=== PATIENT | female | born 1965 | race Caucasian/White ===

== ENCOUNTER 2022-07-24 08:54 | Outpatient (CLI) | payer BC, SELFPAY ==
--- NOTE | 2022-07-24 08:30 | DI.RAD_ITS ---
Exam(s) XR KNEE RT 3V AP,LAT,KEAGAN EXAM: XR KNEE RT 3V AP,LAT,KEAGAN CLINICAL HISTORY: bilateral knee pain. TECHNIQUE: 2D digital imaging was performed. COMPARISON: No exams were available for comparison FINDINGS: 3 views No evidence of fracture but there is a joint effusion evident. There is advanced narrowing of the me dial compartment. Mild lateral compartment exhibits normal height. There also appears to be mild de generative change in patellofemoral compartment. There is also a notch on the posterior aspect of th e patella, similar to the opposite side. IMPRESSION: Degenerative changes, as described above. DATA REPOSITORY: RADIATION DOSE DELIVERED:
--- NOTE | 2022-07-24 08:30 | DI.RAD_ITS ---
Exam(s) XR KNEE LT 3V AP,LAT,KEAGAN EXAM: XR KNEE LT 3V AP,LAT,KEAGAN CLINICAL HISTORY: bilateral knee pain. TECHNIQUE: 2D digital imaging was performed. COMPARISON: CR XR KNEE RT 3V AP,LAT,KEAGAN from 07/24/2022 FINDINGS: 3 views No evidence of fracture. There appears to be a small joint effusion. There is significant narrowing of the medial compartment. Lateral compartment exhibits normal height. There is some degenerative change in the patellofemoral compartment and abnormality of the posterior surface of the patella whic h is difficult to evaluate without merchant's view. Possible osteochondral defect versus development al notch at this level. IMPRESSION: As above. Recommend additional merchant's view. DATA REPOSITORY: RADIATION DOSE DELIVERED:
== END 2022-07-24 08:55 | disposition home or self-care (01) ==
LOC: DIORS 08:55
PROVIDERS: PCP Family Medicine; Referring Provider Family Medicine; Visit Provider Student in an Organized Health Care Education/Training Program
DX: M25.561 Pain in right knee (principal); M25.562 Pain in left knee; M25.461 Effusion, right knee; M25.462 Effusion, left knee; M17.0 Bilateral primary osteoarthritis of knee
CPT/HCPCS: 73562

== ENCOUNTER 2022-10-08 08:37 | Outpatient (CLI) | payer BC, SELFPAY ==
--- NOTE | 2022-10-08 08:00 | DI.RAD_ITS ---
Exam(s) XR STANDING ALIGNMENT EXAM: XR STANDING ALIGNMENT CLINICAL HISTORY: f/u. TECHNIQUE: 2D digital imaging was performed. Standing AP views were performed from the pelvis throu gh the ankles. COMPARISON: CR XR KNEE LT 3V AP,LAT,KEAGAN from 07/24/2022 CR XR KNEE RT 3V AP,LAT,KEAGAN from 07/24/2022 FINDINGS: BONES: No acute fracture is present. No bony destructive lesion is seen. Leg length discrepancy: The left femoral head projects slightly superior to the right. JOINTS: Knees: Right knee: Severe narrowing of the medial femoral tibial joint space. Mild periartic ular spurring. Left knee moderate to severe narrowing of the medial femoral tibial joint space and m ild periarticular spurring. The ankle joints are unremarkable. The hip joints spaces are maintained. Mild acetabular spurring on the right.. SOFT TISSUE: Normal. IMPRESSION: Advanced degenerative changes of both knees, right greater than left. . Mild overall leg length discrepancy. DATA REPOSITORY: RADIATION DOSE DELIVERED:
== END 2022-10-08 08:38 | disposition home or self-care (01) ==
LOC: DIORS 08:37
PROVIDERS: PCP Nurse Practitioner Family; Referring Provider Nurse Practitioner Family; Visit Provider Student in an Organized Health Care Education/Training Program
DX: M21.70 Unequal limb length (acquired), unspecified site; M25.562 Pain in left knee; M17.0 Bilateral primary osteoarthritis of knee
CPT/HCPCS: 77073

== ENCOUNTER 2022-10-30 05:55 | Day surgery (SDC) | payer BC, SELFPAY ==
[2022-10-30] VITALS (14 sets, daily range): BP systolic 81–119; BP diastolic 44–77; PULSE 80–107; RESP 11–23; TEMP 36.5–37.2; O2SAT 92–98; BMI 29.1
--- NOTE | 2022-10-30 05:13 | ANES.PREOP_ITS ---
General Info Date of Service Date Performed: 10/30/22 Height: 5 ft 5 in Weight: 79.379 kg Body Mass Index (BMI): 29.1 Surgical Procedure: Operation Date: 10/30/22 08:00 Proposed Procedure Side Surgeon p Medial Unicondylar Knee Arthroplasty Left Gilbert Dsouza MD Meds Allergies and Home Medications Allergies Allergy/AdvReac Type Severity Reaction Status Date / Time No Known Allergies Allergy Verified 10/30/22 06:03 Home Medication Medication Instructions Recorded levothyroxine 88 mcg capsule 88 mcg PO DAILY 07/24/22 multivitamin 1 tab PO DAILY 10/27/22 Current Visit Medications: Current Medications Generic Name Dose Route Start Last Admin Trade Name Freq PRN Reason Stop Dose Admin Acetaminophen 1,000 mg 10/30/22 06:00 Acetaminophen 500 Mg Tab PO 10/30/22 16:00 PREOP YARI Celecoxib 400 mg 10/30/22 06:00 Celecoxib 200 Mg Cap PO 10/30/22 16:00 PREOP YARI Gabapentin 300 mg 10/30/22 06:00 Gabapentin 300 Mg Cap PO 10/30/22 16:00 PREOP [facility] Ringer's Solution 1,000 mls @ 30 mls/hr 10/30/22 06:00 IV 11/28/22 23:59 INFUSION YARI Cefazolin Sodium/Dextrose 2 gm in 50 mls @ 100 mls/hr 10/30/22 06:00 Ancef Duplex IVPB 10/30/22 16:00 PREOP [facility] Tranexamic Acid 1,000 mg/ 60 mls @ 360 mls/hr 10/30/22 06:00 Sodium Chloride IVPB 10/30/22 16:00 PREOP [facility] IV Miscellaneous Supplies 1 each 10/30/22 06:00 Iv Access IV 11/28/22 23:59 DIRECTED YARI Sodium Chloride 0 ml 10/30/22 06:00 Normal Saline Flush 10 Ml Syr IV 11/28/22 23:59 PRN PRN Sodium Chloride 0 ml 10/30/22 06:00 Normal Saline 10 Ml Vial IJ 11/28/22 23:59 DIRECTED PRN Sterile Water 0 ml 10/30/22 06:00 Water,Injection,Sterile 10 Ml Vial IJ 11/28/22 23:59 DIRECTED PRN PFSH Active Problems Active Problems: Problem Status Onset Code Primary osteoarthritis of left knee M17.12 Primary osteoarthritis of right knee M17.11 Medical History Medical History Hypothyroidism Surgical History Surgical History Hx of hysterectomy Tobacco Smoking/Tobacco Use Status: Never Alcohol Alcohol Intake: current Alcohol intake frequency: a few times a week Alcohol type: wine Substance Use Substance use: Never Substance use type: does not use Vital Signs and Lab Results Vital Signs Most Recent Vital Signs in EMR: Temp Pulse Resp BP Pulse Ox 36.6 C 85 16 119/74 98 10/30/22 06:03 10/30/22 06:03 10/30/22 06:03 10/30/22 06:03 10/30/22 06:03 Lab Results Blood Type / Crossmatch: No Data to Display Complete Blood Count: No Data to Display Complete Metabolic Panel: No Data to Display Liver Function Panel: No Data to Display Coagulation Panel: No Data to Display Cardiac Panel: No Data to Display Arterial Blood Gas: No Data to Display Venous Blood Gas: No Data to Display Pancreas Panel: No Data to Display Thyroid Panel: No Data to Display Infectious Disease: No Data to Display Blood Cultures: No Data to Display Toxicology Panel: No Data to Display Anesthesia Assessment and Plan Anesthesia History Personal History: No History of Anesthesia Complications Family History: No Family History of Anesthesia Complications Exercise Tolerance Exercise Tolerance: Metabolic Equivalents>4 Cardiac & Pulmonary Exam Cardiac Exam: Normal S1/S2 Heart Sounds Pulmonary Exam: Clear Bilateral Breath Sounds Implantable Cardiac Device Does patient have a Pacemaker or an ICD?: No Airway Exam Known Difficult Airway: No Mallampati Class: 3 Mouth Opening: Narrow (< 3cm) Thyromental Distance: Less than 3 cm Neck Range of Motion: Full ROM Neck Circumference: Normal Teeth Condition: Normal Dentition ASA Classification ASA Score: ASA 2 Emergency Case?: No NPO Status NPO Status: NPO Clears >2 hours, Solids >8 hours Anesthesia Plan Resuscitation Status: Full Code Anesthesia Technique: Spinal Anesthesia Airway Planned: Natural Airway Pain Management: Surgeon and patient request nerve block Monitors Used: Standard Monitors Preoperative Comments:: 57 yo female with medial knee arthritis for left medial unicondylar arthroplasty. Sig PMHx: hypothyroid (on replacement), never smoker, occ EtOH. Plan: spinal with ipack and adductor.
[2022-10-30] MEDS: Acetaminophen 500 MG TAB 1000 MG PO (06:30)
[2022-10-30] MEDS: Celecoxib 200 MG CAP 400 MG PO (06:30)
[2022-10-30] MEDS: Gabapentin 300 MG CAP PO (06:31)
[2022-10-30] MEDS: Lactated Ringers 1,000 ML 30 ML IV ×2 (06:31→11:47)
--- NOTE | 2022-10-30 07:00 | DI.RAD_ITS ---
Exam(s) XR KNEE LT 2V AP,LAT EXAM: XR KNEE LT 2V AP,LAT CLINICAL HISTORY: Left knee arthritis. TECHNIQUE: 2D digital imaging was performed of the left knee. Two images were obtained. Merchant,A P, lateral and PA tunnel views were obtained. COMPARISON: CR XR KNEE LT 3V AP,LAT,KEAGAN from 07/24/2022 CR XR STANDING ALIGNMENT from 10/08/2022 FINDINGS: The patient is now status post partial left knee replacement. The orthopedic hardware appears in goo d position. The bones are intact and normally mineralized. There are mild degenerative changes seen at the patellofemoral joint characterized by patellar spurring. Postsurgical changes are seen in th e soft tissues. IMPRESSION: Status post partial left knee replacement. DATA REPOSITORY: RADIATION DOSE DELIVERED:
--- NOTE | 2022-10-30 07:12 | W.PM.DSUDISC ---
Date of service: 10/30/22 Time of Service: 13:30 Discharge Plan Disposition Patient Disposition: Home Discharge Details Attending Provider: Gilbert Dsouza Primary Care Provider: Inocencio Titus Home Meds and New Rx's Prescriptions: New aspirin 81 mg tablet,delayed release (DR/EC) 81 mg PO BID 30 Days Qty: 60 0RF naproxen 250 mg tablet 250 - 500 mg PO BID PRNQty: 40 0RF Rx Instructions: take with a meal oxycodone 5 mg tablet 5 - 10 mg PO Q4H MDD 30 mg PRN (Reason: moderate to severe pain) Qty: 18 0RF Continued levothyroxine 88 mcg capsule 88 mcg PO DAILY multivitamin Tablet 1 tab PO DAILY Discharge Instructions Additional Instructions: Surgery: Left medial unicondylar knee replacement Activity: Weightbearing as tolerated. Recommend elevation to minimize swelling and discomfort. Walk as comfort allows. May use crutches as needed for a few weeks. It is important to restore full knee extension as soon as possible. Gently increase knee flexion over the next few weeks. Do not rest with pillows behind knee to prevent knee from getting stuck bent. Encourage ankle pumps and wiggling toes to increase circulation. A physical therapy prescription will be sent electronically to begin in 2-3 weeks. Prescriptions: Aspirin 81 mg take 1 twice a day to prevent a blood clot 30 days Naproxen 250 mg take 1-2 every 12 hours with a meal as needed for moderate pain Oxycodone 5 mg take 1-2 every 4-6 hours as needed for severe pain You may use [id number] Tylenol (acetaminophen) as needed for mild pain. These pain medications may be taken all at once or in different combinations as needed. Also, recommend Colace (docusate) as a stool softener as surgery and pain medicine cause constipation. You may try [id number] diphenhydramine (Benadryl) 25-50 mg nightly as a sleep aid Dressings: Leave Band-Aid in place until follow-up. Keep clean and dry at all times. May remove Alec wrap tomorrow. May re-wrap with Alec wrap to help control swelling as needed. Follow-up: 10-[address] Dsouza November 11 at 8:00 am You may take off the leg compression Alec wrap and stockings tomorrow at home. You may also leave them on a few days longer if you have a history of leg swelling or edema. Let us know right away if you develop any redness, drainage, fevers, chest pain, or trouble breathing. Do not drink alcohol or drive for at least 24 hours after anesthesia. Please call the office during business hours with any questions or concerns. Discharge Orders Discharge Orders: Discharge Order (Routine); Ordered 10/30/22 Ordered By: Gilbert Dsouza DS: Diagnosis Discharge Diagnosis (1) Primary osteoarthritis of left knee: Status: Acute
--- NOTE | 2022-10-30 07:14 | ROE_ITS ---
Date of service: 10/30/22 Time of Service: 07:30 Operative Note Operative Note DATE OF PROCEDURE: 10/30/22 PRE-OP DIAGNOSIS: Left knee medial compartmental arthritis POST-OP DIAGNOSIS: same PROCEDURE: Left knee medial unicompartmental arthroplasty, CPT # 66939 The carpenter assistant installer was medically required as this procedure involves retraction, protection of neurovascular structures, and manipulation of multiple instruments and implants at the same time, which cannot be done without a skilled carpenter assistant installer. SURGEON: Gilbert Dsouza ACTIVITIES DIRECTOR: Sharon Rodney ANESTHESIA TYPE: Local By Surgeon, MAC, Spinal and Primary Nerve Block Refer to Anesthesia Record ESTIMATED BLOOD LOSS: 50 PATHOLOGY: none sent TOURNIQUET TIME: 0 COMPLICATIONS: None Patient was transported to: PACU Patient's condition: stable Implants: DePuy Sigma HP partial knee size 1 metal-backed tibial tray, 9 mm tibial insert fixed bearing, size 3 femoral component Indications: Please see complete medical record for details. Findings: Isolated medial compartment arthritis Procedure Description: The patient was taken to the operating room and transferred to the operating room table. Spinal anesthesia was induced. All bony prominences were well- padded. Preoperative antibiotics and 1 g TXA were administered. A tourniquet was placed loosely over padding high on the patient's thigh. The knee and lower extremity were prepped and draped in the usual sterile fashion. The correct patient, procedure, and side of the procedure were all verified prior to incision. A slightly medial of midline longitudinal approach was used to the knee extending from the superior pole the patella to the distal aspect of the tibial tubercle. The quadriceps tendon, patella borders, and patellar tendon were exposed. A full-thickness arthrotomy was performed starting splitting the quadriceps tendon and leaving a sleeve of tissue on the medial aspect of the patella and taking care to progress along the medial margin the patellar tendon. The MCL was elevated off the proximal medial tibia. The tibial alignment jig was set in place on the anterior medial aspect of the tibia and carefully adjusted to achieve proper alignment in the coronal and sagittal planes. Reciprocating saw was used to create the vertical cut at the medial aspect of the medial tibial eminence taking care to protect the ACL ligament footprint. The transverse cut was then done using the microsagittal saw through the jig taking care to retract and protect the MCL. The bone piece and cut were inspected and found to be appropriate for patient anatomy. A box rasp was used to clean up the cut especially the L component. The 8mm spacer block was inserted and found to have good equal stability in full extension and 90 degrees of flexion with approximately 2 mm of joint space opening in 20-30 degrees of flexion. With the knee in extension, the tibial trial spacer block was used to vicente the rotational alignment and anterior extent of the femoral component. The spacer block was removed and the tibia was sized with the depth gauge. The distal femoral cutting block was inserted taking care to orient it ap propriately. The cut was done using the saw through the guide. The guide was removed, and the femur was sized with the femoral sizing blocks. The appropriate sized cutting jig was selected. Care was taken to ensure the block was flush with the resected distal femur bone surface. A curved gouge was used to cut the profile of the proximal tip of the femoral prosthesis, vicente the extent of the anterior chamfer cut, and prevent trochlear cartilage delamination. The posterior cut was done through the jig, the anterior cut was done using the osteotomes, the posterior chamfer cut was done through the jig, and the drill was used to drill the 2 peg holes. The cutting block and bone cuts were removed. The medial meniscus remnant was removed. The femoral component trial was placed in the distal femur and the 8mm spacer block showed reasonably good balancing in flexion, extension, and with about 2 mm of medial joint space opening in 20-30 degrees of flexion. Tibial template was inserted and the size confirmed to be appropriate. The keel was used by hand to remove bone from the slot and the tibial peg drill was used in the peg hole. The pulse lavage was used to clean the bone surfaces. SmartSet medium viscosity cement was prepared. At the appropriate time during the early working phase, the cement was applied to the backside of the tibial and femoral components. Then, cement was carefully placed and pressurized into the proximal tibia taking care to only have minimal cement posteriorly. The tibial component was inserted at an angle and then impacted directing pressure from posterior to anterior to keep the flow of cement from posterior to anterior. Cement was then applied to the distal femur and the femoral component impacted. Excess cement was removed. The knee was brought into full extension and this position with axial load was maintained until the cement was completely hardened at 18 minutes. A combination R.E.C.K. (123 mg Ropivacaine, 0.25 mg Epinephrine, 0.04 mg Clonidine, and 15 mg Ketorolac) 50 ml injection was widely infiltrated about the knee. The wound was copiously irrigated with the pulse lavage and Surgiphor. Tibial tray blast furnace supervisor was removed, the tibia 8 mm trial was used again with just slightly more laxity than ideal, the 9 mm trial had excellent balancing in flexion, extension, and still about 1-2 mm of medial joint opening and mild f lexion. The final 9mm tibial insert was inserted and clicked into place. The knee was tested through range of motion found to be stable with equal balancing from full extension to flexion past 90 degrees and a couple millimeters of medial joint space opening in 20-30 degrees of flexion. Appropriate hemostasis was achieved. The capsule was approximated using #1 Vicryl in a figure-of-8 interrupted fashion and then closed using Stratafix #1 PDS barbed suture in a running fashion. The superficial layers were irrigated. Subcutaneous tissue was closed using 2-0 Monocryl in a buried interrupted fashion. Skin was closed using 3-0 Monocryl in a buried subcuticular fashion. The skin incision was glued and then covered with a Mepilex Ag dressing. An Alec wrap was applied from the foot up to the thigh. The patient awoke from anesthesia without complication was transferred to the recovery room in stable condition.
--- NOTE | 2022-10-30 07:22 | W.ANESNERVE ---
Nerve Block Single Injection Procedure Date and Time Date Performed: 10/30/22 Procedure Start: 07:12 Location Where Procedure Performed Procedure Location: Day Surgery Unit Reason Performed: Postoperative Analgesia Requesting Provider: Gilbert Dsouza Timeout Performed Timeout Performed: Yes Monitoring Used ECG, Blood Pressure and SpO2 Sterility Sterility: Hand Hygiene Sedation Given During Procedure Sedation Given (Indicate Dose Given): Versed IV Dose:: 2 mg and Precedex IV Dose:: 8 mcg Patient Mental Status Patient Mental Status: Awake Nerve Block 1st Nerve Block: Laterality: Left Block Type: iPACK Ultrasound Image Saved?: Yes Needle / Catheter Used: 100mm SonoPlex II Local Anesthetic Bolus (Indicate Dose Given): Lidocaine used for local infiltration of skin, Injected in 3-5ml increments after negative blood aspiration and Bupivacaine 0.25% Dose:: 12 mL Additives (Indicate Dose Given): Epinephrine to make 1:400,000 (2.5mcg/ml) Dose:: 30 mcg and Precedex Dose:: 19 mcg Ultrasound: Sterile probe cover and gel used Nerve Stimulator: Supplement to Ultrasound use and No twitch or parasthesia noted < 0.5 mA Paresthesia: None Procedure Tolerated: No Complications Procedure Outcome: Successful Performed By: Jose Almonte 2nd Nerve Block: Laterality: Left Block Type: Adductor Canal Ultrasound Image Saved?: Yes Needle / Catheter Used: 100mm SonoPlex II Local Anesthetic Bolus (Indicate Dose Given): Lidocaine used for local infiltration of skin and Bupivacaine 0.25% Dose:: 12 mL Additives (Indicate Dose Given): Epinephrine to make 1:400,000 (2.5mcg/ml) Dose:: 30 mcg and Precedex Dose:: 19 mcg Ultrasound: Sterile probe cover and gel used Nerve Stimulator: Supplement to Ultrasound use and Other (twitch noted in vastus, needle repositioned until stopped, local injected, needle finished advancing towards the saphenous nerve. ) Paresthesia: None Procedure Tolerated: No Complications Procedure Outcome: Successful Procedure Comment: 6 mL to NVM, 6 mL to saphenous. Performed By: Jose Almonte
[2022-10-30] MEDS: ceFAZolin 2 GM/50 ML BAG IVPB (07:39)
[2022-10-30] MEDS: ePHEDrine 50 MG/ML VIAL 25 MG IM (11:40)
--- NOTE | 2022-10-30 11:56 | W.ANESPOSTOP ---
Postoperative Evaluation Date, Time and Location Date Performed: 10/30/22 Time Performed: 11:56 Patient Location: PACU Vital Signs Most Recent Imported Vital Signs: Most Recent Vital Signs Temp Pulse Resp BP Pulse Ox 36.7 C 85 11 L 84/44 L 98 10/30/22 11:43 10/30/22 11:43 10/30/22 11:43 10/30/22 11:43 10/30/22 11:43 Pain Score Most Recent Pain Score: Most Recent Pain Score Pain Level 0 10/30/22 07:20 Assessment Mental Status: Awake (Alert & Oriented to Patient Baseline) Airway and Respiratory Function: Patent airway with normal (patient baseline) respiratory exam Cardiovascular Function: Hemodynamically Stable Hydration Status: Adequately Hydrated Nausea & Vomiting: No Nausea or Vomiting Pain: Pt. Denies Any Pain Peripheral Nerve Block: Regional nerve block not resolved at time of post operative discharge
[2022-10-30] MEDS: ceFAZolin 1 GM/50 ML BAG IVPB (12:55)
--- NOTE | 2022-10-30 14:38 | IN_ITS ---
Date of service: 10/30/22 Time of Service: 13:18 PT Notes Physical Therapy Day Surgery Initial Evaluation Date: 10/30/2022 Referring Doctor: Gilbert Dsouza MD PT Orders: PT CONSULT: S/P Ortho Surgery. S/P Lt UKA, WBAT; crutches until stable Precautions: WBAT on the L LE with AD. Patient Profile/Admitting Diagnosis: Britta is a 57-year-old female left medial compartment arthritis and is status post left medial knee unicompartmental arthroplasty on postoperative day 0. PMHX: All Active Problems?(Updated 07/24/22 @ 09:00 by JUAN Portillo) Primary osteoarthritis of right knee (Acute) Steroid injection: 07/24/2022rimary osteoarthritis of left knee (Acute) Steroid injection: 07/24/2022 Social History/Home Situation: Lives with in a private home with 2-3 steps to enter with rails on B sides. has a flight of steps to the 2F where bedroom is. Independent with all aspects of ADLs prior to surgery although patient had been limping through for the past year or two. No falls in the past year. Works as a [employer] teacher. Equipment Owned/DME: Walking sticks Subjective: Denies pain in the left knee. Denies headache, chest pain, and lightheadedness throughout session. Worried over incontinence episode from anesthesia effect. Objective: General Observation: Supine in bed. CULLEN wraps to left LE. Mental Status: Oriented x4 Pain: 1?2/10 pain in the left knee ROM: Right Lower Extremity: Hip flexion WFL. Hip abduction WFL. Knee flexion WFL. Ankle dorsiflexion WFL. Ankle plantarflexion WFL. Left Lower Extremity: Hip flexion WFL. Hip abduction WFL. Knee flexion 0-110 degrees. Knee extension 110-0 degrees. Ankle dorsiflexion WFL. Ankle p lantarflexion WFL. Strength: Right Lower Extremity: Hip flexors 5/5. Hip abductors 5/5. Knee flexors 5/5. Knee extensors 5/5. Ankle dorsiflexors 5/5. Ankle plantarflexors 5/5. Left Lower Extremity:Hip flexors 5/5. Hip abductors 5/5. Knee flexors 3-/5. Knee extensors 3-/5. Ankle dorsiflexors 5/5. Ankle plantarflexors 5/5. Sensation: Intact as to pain and light pressure in bilateral lower extremities. Remains numb in the perineal area. Bed Mobility/Transfers: Supine to sit stand by assist Sit to stand contact-guard assist Stand to sit stand by assist Bed to chair stand by assist Gait: Tolerated level surface ambulation of 150 feet using front-wheeled walker with step through gait pattern. Feels more secure with use of FWW knowing that her pain level may change once anesthesia wears off. Balance: Static Sitting: Normal Dynamic Sitting: Normal Static Standing: Fair Dynamic Standing: Fair Special Tests: Mobility Limitations Standardized Measure [facility] AM-PAC 6 clicks Basic Mobility Inpatient Short Form: Raw Score: 23 CMS Score: 11% deficit Informed Consent/Education: Patient instructed in purpose of PT consult. Packet containing partial TKA exercise protocol has been given to patient. Education and training on initial set of exercises that can be done at home have been completed with patient and . Exercises - Supine Quadricep Sets? - 1 x daily - 7 x weekly - 1 sets - 10 reps - 5 hold - Supine Heel Slide? - 1 x daily - 7 x weekly - 1 sets - 10 reps - 5 hold - Supine Ankle Pumps? - 1 x daily - 7 x weekly - 1 sets - 10 reps - 5 hold - Seated September? - 1 x daily - 7 x weekly - 1 sets - 10 reps - 5 hold - Small Range Straight Leg Raise? - 1 x daily - 7 x weekly - 1 sets - 10 reps - 5 hold Access Code: [email or web address] URL: [email or web address] Date: 10/30/2022 Prepared by: Val Oquendo Assessment: Patient requires the use of FWW to maximize independence and reduce fall risk. Patient presents with clinical signs and symptoms consistent with current/admitting diagnoses that have resulted to mobility limitations, gait instability, generalized weakness, and impairment of motor control as demonstrated by the following impairment level findings: 1. Decreased strength to left knee major muscle groups 2. Impaired standing balance 3. Limitation of joint range of motion in left knee Impairments are contributing to the following functional limitations: 1. Inability to safely ambulate without assistive device 2. Increase completion time for mobility ADL performance 3. Increased fall risk Patient is assessed as a 80149 moderate complexity based on the following: History: 57-year-old female with impairment level findings, functional limitations, and past medical history as indicated above Examination: Demonstrable impairment in strength, balance, and mobility level with underlying impairments and functional limitations as documented above Presentation: Evolving Decision Makin moderate complexity Goals: N/A. PT evaluation and 1-2 treatment sessions only for functional mobility training using recommended AD and for HEP instruction. Plan of Care/Treatment Plan: N/A. PT evaluation and 1-2 treatment session only for functional mobility training using recommended AD and for HEP instruction. DISCHARGE RECOMMENDATIONS: Home when medically cleared by orthopedic surgeon. Recommend outpatient PT services in order to optimize functional mobility outcomes and facilitate return to independent community ambulation and vocational activities. TREATMENT CODE/TIME: 88812 x 20 minutes, 49491 x 10 minutes beginning at 13:59 PM. Thank you for the opportunity to participate in the care of this patient. Val Oquendo PT, DPT, CLT [facility] [place], [place]
== END 2022-10-30 15:17 | disposition home or self-care (01) ==
PROVIDERS: PCP Nurse Practitioner Family; Visit Provider Student in an Organized Health Care Education/Training Program
PROC: (CPT 27446; principal; 2022-10-30 07:30)
DX: M17.12 Unilateral primary osteoarthritis, left knee (principal); E03.9 Hypothyroidism, unspecified
CPT/HCPCS: 27446; 76942; 97162; 97530; 73560; J0171; J0690; J1100; J2250; J2370; J2405; J3475

== ENCOUNTER 2022-11-11 08:05 | Outpatient (CLI) | payer BC, SELFPAY ==
--- NOTE | 2022-11-11 08:00 | DI.RAD_ITS ---
Exam(s) XR KNEE LT 2V AP,LAT EXAM: XR KNEE LT 2V AP,LAT CLINICAL HISTORY: f/u surgery. TECHNIQUE: 2D digital imaging was performed. COMPARISON: CR XR KNEE LT 2V AP,LAT from 10/30/2022 FINDINGS: 3 views There is continued stable appearance components medial hemiarthroplasty. No fracture nor. The later al compartment continues to maintain satisfactory height. IMPRESSION: Stable satisfactory appearance. DATA REPOSITORY: RADIATION DOSE DELIVERED:
== END 2022-11-11 08:06 | disposition home or self-care (01) ==
LOC: DIORS 08:05
PROVIDERS: PCP Nurse Practitioner Family; Referring Provider Nurse Practitioner Family; Visit Provider Physician Assistant
DX: M17.12 Unilateral primary osteoarthritis, left knee (principal); Z48.89 Encounter for other specified surgical aftercare
CPT/HCPCS: 73560

== ENCOUNTER 2022-12-23 08:20 | Outpatient (CLI) | payer BC, SELFPAY ==
--- NOTE | 2022-12-23 08:00 | DI.RAD_ITS ---
Exam(s) XR KNEE LT 2V AP,LAT EXAM: XR KNEE LT 2V AP,LAT CLINICAL HISTORY: s/p UNI KNEE. TECHNIQUE: 2D digital imaging was performed. Two images were obtained. AP and lateral views were ob tained. COMPARISON: CR XR KNEE LT 2V AP,LAT from 11/11/2022 FINDINGS: BONES: There are stable post operative changes present. No fracture or dislocation. JOINTS: The orthopedic hardware is in good position. No evidence of hardware loosening. Mild degene rative changes are seen at the patellofemoral joint. SOFT TISSUE: Normal. IMPRESSION: Stable postoperative changes. DATA REPOSITORY: RADIATION DOSE DELIVERED:
== END 2022-12-23 08:21 | disposition home or self-care (01) ==
LOC: DIORS 08:20
PROVIDERS: PCP Nurse Practitioner Family; Referring Provider Nurse Practitioner Family; Visit Provider Student in an Organized Health Care Education/Training Program
DX: M17.12 Unilateral primary osteoarthritis, left knee (principal); Z47.89 Encounter for other orthopedic aftercare; Z98.890 Other specified postprocedural states
CPT/HCPCS: 73560

== ENCOUNTER 2023-03-11 08:32 | Outpatient (CLI) | payer BC, SELFPAY ==
--- NOTE | 2023-03-11 08:00 | DI.RAD_ITS ---
Exam(s) XR KNEE LT 2V AP,LAT EXAM: XR KNEE LT 2V AP,LAT CLINICAL HISTORY: F/U LEFT KNEE UKA. TECHNIQUE: 2D digital imaging was performed of the left knee. Two images were obtained. AP and lat eral views were obtained. COMPARISON: CR XR KNEE LT 2V AP,LAT from 12/23/2022 FINDINGS: BONES: No acute fracture is present. No bony destructive lesion is seen. JOINTS: There are stable postsurgical changes of a left hemiarthroplasty. No suspicious lucencies ar e seen in or about the orthopedic hardware. Degenerative changes are seen at the patellofemoral join t. There may be a small joint effusion present. No loose body. SOFT TISSUE: Normal. IMPRESSION: Stable hemiarthroplasty of the left knee. DATA REPOSITORY: RADIATION DOSE DELIVERED:
== END 2023-03-11 08:33 | disposition home or self-care (01) ==
LOC: DIORS 08:32
PROVIDERS: PCP Nurse Practitioner Family; Visit Provider Student in an Organized Health Care Education/Training Program
DX: Z47.89 Encounter for other orthopedic aftercare; Z98.890 Other specified postprocedural states
CPT/HCPCS: 73560

== ENCOUNTER 2023-04-02 06:09 | Day surgery (SDC) | payer BC, SELFPAY ==
[2023-04-02] VITALS (10 sets, daily range): BP systolic 86–145; BP diastolic 48–88; PULSE 83–96; RESP 13–18; TEMP 36.1–37.1; O2SAT 94–97; BMI 28.6
--- NOTE | 2023-04-02 07:00 | DI.RAD_ITS ---
Exam(s) XR KNEE RT 2V AP,LAT EXAM: XR KNEE RT 2V AP,LAT CLINICAL HISTORY: Arthritis- Portable in PACU postop. TECHNIQUE: 2D digital imaging was performed. COMPARISON: CR XR KNEE LT 2V AP,LAT from 03/11/2023 FINDINGS: 3 views Satisfactory position alignment of the components of the newly placed right knee medial hemiarthropla sty. No fracture or loosening evident. IMPRESSION: Satisfactory postop appearance. DATA REPOSITORY: RADIATION DOSE DELIVERED:
[2023-04-02] MEDS: Acetaminophen 500 MG TAB 1000 MG PO (07:07)
--- NOTE | 2023-04-02 07:07 | W.PM.DSUDISC ---
Date of service: 04/02/23 Time of Service: 14:00 Discharge Plan Disposition Patient Disposition: Home Condition: Stable Discharge Details Attending Provider: Gilbert Dsouza Primary Care Provider: Inocencio Titus Home Meds and New Rx's Prescriptions: New aspirin 81 mg tablet,delayed release (DR/EC) 81 mg PO BID 30 Days Qty: 60 0RF naproxen 250 mg tablet 250 - 500 mg PO BID PRNQty: 40 0RF Rx Instructions: take with a meal oxycodone 5 mg tablet 5 - 10 mg PO Q4H MDD 30 mg PRN (Reason: moderate to severe pain) Qty: 18 0RF Continued levothyroxine 88 mcg capsule 88 mcg PO DAILY multivitamin Tablet 1 tab PO DAILY Discharge Instructions Additional Instructions: Surgery: Right medial unicondylar knee replacement Activity: Weightbearing as tolerated. Recommend elevation to minimize swelling and discomfort. Walk as comfort allows. May use crutches or walker as needed for a few weeks. It is important to restore full knee extension as soon as possible. Gently increase knee flexion over the next few weeks. Do not rest with pillows behind knee to prevent knee from getting stuck bent. Encourage ankle pumps and wiggling toes to increase circulation. A physical therapy prescription will be sent electronically to begin in 2-3 weeks. Prescriptions: Aspirin 81 mg take 1 twice a day to prevent a blood clot 30 days Naproxen 250 mg take 1-2 every 12 hours with a meal as needed for moderate pain Oxycodone 5 mg take 1-2 every 4-6 hours as needed for severe pain You may use [id number] Tylenol (acetaminophen) as needed for mild pain. These pain medications may be taken all at once or in different combinations as needed. Also, recommend Colace (docusate) as a stool softener as surgery and pain medicine cause constipation. You may try [id number] diphenhydramine (Benadryl) 25-50 mg nightly as a sleep aid Dressings: Leave Band-Aid in place until follow-up. Keep clean and dry at all times. May remove Alec wrap tomorrow. May re-wrap with Alec wrap to help control swelling as needed. Follow-up: 10-[address] Dsouza You may take off the leg compression Alec wrap and stockings tomorrow at home. You may also leave them on a few days longer if you have a history of leg swelling or edema. Let us know right away if you develop any redness, drainage, fevers, chest pain, or trouble breathing. Do not drink alcohol or drive for at least 24 hours after anesthesia. Please call the office during business hours with any questions or concerns. Discharge Orders Discharge Orders: Discharge Order (Routine); Ordered 04/02/23 Ordered By: Gilbert Dsouza DS: Diagnosis Discharge Diagnosis (1) Primary osteoarthritis of right knee: Status: Acute
[2023-04-02] MEDS: Gabapentin 300 MG CAP PO (07:08)
[2023-04-02] MEDS: Celecoxib 200 MG CAP 400 MG PO (07:08)
--- NOTE | 2023-04-02 07:08 | W.ANESPRE ---
General Info Date of Service Date Performed: 04/02/23 Height: 5 ft 5 in Weight: 78.018 kg Body Mass Index (BMI): 28.6 Surgical Procedure: Operation Date: 04/02/23 08:00 Proposed Procedure Side Surgeon p Medial Unicondylar Knee Arthroplasty Right Gilbert Dsouza MD Meds Allergies and Home Medications Allergies Allergy/AdvReac Type Severity Reaction Status Date / Time No Known Allergies Allergy Verified 04/02/23 06:51 Home Medication Medication Instructions Recorded levothyroxine 88 mcg capsule 88 mcg PO DAILY 07/24/22 multivitamin 1 tab PO DAILY 10/27/22 Current Visit Medications: Current Medications Generic Name Dose Route Start Last Admin Trade Name Freq PRN Reason Stop Dose Admin Acetaminophen 1,000 mg 04/02/23 06:00 04/02/23 07:07 Acetaminophen 500 Mg Tab PO 05/02/23 05:59 1,000 mg PREOP YARI Administration Celecoxib 400 mg 04/02/23 06:00 04/02/23 07:08 Celecoxib 200 Mg Cap PO 05/02/23 05:59 400 mg PREOP YARI Administration Gabapentin 300 mg 04/02/23 06:00 04/02/23 07:08 Gabapentin 300 Mg Cap PO 05/02/23 05:59 300 mg PREOP YARI Administration Ringer's Solution 1,000 mls @ 30 mls/hr 04/02/23 06:00 IV 04/02/23 23:59 INFUSION YARI Cefazolin Sodium/Dextrose 2 gm in 50 mls @ 100 mls/hr 04/02/23 06:00 Ancef Duplex IVPB 04/02/23 23:59 PREOP YARI Tranexamic Acid 1,000 mg/ 60 mls @ 360 mls/hr 04/02/23 06:00 Sodium Chloride IVPB 04/02/23 16:00 PREOP YARI Cefazolin Sodium/Dextrose 1 gm in 50 mls @ 100 mls/hr 04/02/23 11:30 Ancef Duplex IVPB 04/02/23 11:59 ONCE ONE IV Miscellaneous Supplies 1 each 04/02/23 06:00 Iv Access IV 04/02/23 23:59 DIRECTED YARI Lactobacillus Acidophilus/Casei 1 cap 04/02/23 12:30 L. Acidophilus, Casei, Rhamnosus Cap PO 05/02/23 12:29 DAILY YARI Oxycodone HCl 0 mg 04/02/23 07:03 Oxycodone 5 Mg Tab PO 05/02/23 07:02 Q3H PRN PRN Pain Sodium Chloride 0 ml 04/02/23 06:00 Normal Saline Flush 10 Ml Syr IV 04/02/23 23:59 PRN PRN Sodium Chloride 0 ml 04/02/23 06:00 Normal Saline 10 Ml Vial IJ 04/02/23 23:59 DIRECTED PRN Sterile Water 0 ml 04/02/23 06:00 Water,Injection,Sterile 10 Ml Vial IJ 04/02/23 23:59 DIRECTED PRN PFSH Active Problems Active Problems: Problem Status Onset Code Primary osteoarthritis of left knee M17.12 Primary osteoarthritis of right knee M17.11 Medical History Medical History Hypothyroidism Surgical History Surgical History (Updated 04/02/23 @ 06:29 by Eloina Li) Hx of hysterectomy Hx of total knee arthroplasty 10/30/22 Tobacco Smoking/Tobacco Use Status: Never Alcohol Alcohol Intake: current Alcohol intake frequency: a few times a week Alcohol type: wine Substance Use Substance use: Never Substance use type: does not use Vital Signs and Lab Results Vital Signs Most Recent Vital Signs in EMR: Most Recent Vital Signs Temp Pulse Resp BP Pulse Ox 36.1 C L 91 H 16 145/88 H 96 04/02/23 06:30 04/02/23 06:30 04/02/23 06:30 04/02/23 06:30 04/02/23 06:30 Lab Results Blood Type / Crossmatch: No Data to Display Complete Blood Count: No Data to Display Complete Metabolic Panel: No Data to Display Liver Function Panel: No Data to Display Coagulation Panel: No Data to Display Cardiac Panel: No Data to Display Arterial Blood Gas: No Data to Display Venous Blood Gas: No Data to Display Pancreas Panel: No Data to Display Thyroid Panel: No Data to Display Infectious Disease: No Data to Display Blood Cultures: No Data to Display Toxicology Panel: No Data to Display Anesthesia Assessment and Plan Anesthesia History Personal History: No History of Anesthesia Complications Family History: No Family History of Anesthesia Complications Exercise Tolerance Exercise Tolerance: Metabolic Equivalents>4 Pertinent Negatives Pertinent Negatives: No Symptoms of GERD Cardiac & Pulmonary Exam Cardiac Exam: Normal S1/S2 Heart Sounds Pulmonary Exam: Clear Bilateral Breath Sounds Implantable Cardiac Device Does patient have a Pacemaker or an ICD?: No Airway Exam Known Difficult Airway: No Mallampati Class: 3 Mouth Opening: Narrow (< 3cm) Thyromental Distance: Less than 3 cm Neck Range of Motion: Full ROM Neck Circumference: Normal Teeth Condition: Normal Dentition ASA Classification ASA Score: ASA 2 Emergency Case?: No NPO Status NPO Status: NPO Clears >2 hours, Solids >8 hours Anesthesia Plan Resuscitation Status: Full Code Anesthesia Technique: Spinal Anesthesia Airway Planned: Natural Airway Monitors Used: Standard Monitors
--- NOTE | 2023-04-02 07:13 | W.PM.OP ---
Date of service: 04/02/23 Time of Service: 07:30 Operative Note Operative Note DATE OF PROCEDURE: 04/02/23 PRE-OP DIAGNOSIS: Right knee medial compartmental arthritis POST-OP DIAGNOSIS: same PROCEDURE: Right knee medial unicompartmental arthroplasty, CPT # 82838 The family and divorce legal assistant was medically required as this procedure involves retraction, protection of neurovascular structures, and manipulation of multiple instruments and implants at the same time, which cannot be done without a skilled family and divorce legal assistant. SURGEON: Gilbert Dsouza SWITCHBOARD OPERATOR RECEPTIONIST: Sebastien Miguel ANESTHESIA TYPE: Local By Surgeon, MAC, Spinal and Primary Nerve Block Refer to Anesthesia Record ESTIMATED BLOOD LOSS: 75 PATHOLOGY: none sent TOURNIQUET TIME: 0 COMPLICATIONS: None Patient was transported to: PACU Patient's condition: stable Implants: DePuy Sigma HP partial knee size 1 metal-backed tibial tray, 7 mm tibial insert fixed bearing, size 3 femoral component Indications: Please see complete medical record for details. Findings: Isolated medial compartment arthritis Procedure Description: The patient was taken to the operating room and transferred to the operating room table. Spinal anesthesia was induced. All bony prominences were well-padded. Preoperative antibiotics and 1 g TXA were administered. A tourniquet was placed loosely over padding high on the patient's thigh. The Right knee and lower extremity were prepped and draped in the usual sterile fashion. The correct patient, procedure, and side of the procedure were all verified prior to incision. A slightly medial of midline longitudinal approach was used to the knee extending from the superior pole the patella to the distal aspect of the tibial tubercle. The quadriceps tendon, patella borders, and patellar tendon were exposed. A full-thickness arthrotomy was performed starting splitting the quadriceps tendon and leaving a sleeve of tissue on the medial aspect of the patella and taking care to progress along the medial margin the patellar tendon. The MCL was elevated off the proximal medial tibia. The tibial alignment jig was set in place on the anterior medial aspect of the tibia and carefully adjusted to achieve proper alignment in the coronal and sagittal planes. Reciprocating saw was used to create the vertical cut at the medial aspect of the medial tibial eminence taking care to protect the ACL ligament footprint. The transverse cut was then done using the microsagittal saw through the jig taking care to retract and protect the MCL. The bone piece and cut were inspected and found to be appropriate for patient anatomy. A box rasp was used to clean up the cut especially the L component. The 7mm spacer block was inserted and found to have good equal stability in full extension and 90 degrees of flexion with approximately 2 mm of joint space opening in 20-30 degrees of flexion. With the knee in extension, the tibial trial spacer block was used to vicente the rotational alignment and anterior extent of the femoral component. The spacer block was removed and the tibia was sized with the depth gauge. The distal femoral cutting block was inserted taking care to orient it appropriately. The cut was done using the saw through the guide. The guide was removed, and the femur was sized with the femoral sizing blocks. The appropriate sized cutting jig was selected. Care was taken to ensure the block was flush with the resected distal femur bone surface. A curved gouge was used to cut the profile of the proximal tip of the femoral prosthesis, vicente the extent of the anterior chamfer cut, and prevent trochlear cartilage delamination. The posterior cut was done through the jig, the anterior cut was done using the osteotomes, the posterior chamfer cut was done through the jig, and the drill was used to drill the 2 peg holes. The cutting block and bone cuts were removed. The medial meniscus remnant was removed. The femoral component trial was placed on the distal femur and the 7mm spacer block showed reasonably good balancing in flexion, extension, and with about 2 mm of medial joint space opening in 20-30 degrees of flexion. Tibial template was inserted and the size confirmed to be appropriate. The keel was used by hand to remove bone from the slot and the tibial peg drill was used in the peg hole. The pulse lavage was used to clean the bone surfaces. SmartSet medium viscosity cement was prepared. At the appropriate time during the early working phase, the cement was applied to the backside of the tibial and femoral components. Then, cement was carefully placed and pressurized into the proximal tibia taking care to only have minimal cement posteriorly. The tibial component was inserted at an angle and then impacted directing pressure from posterior to anterior to keep the flow of cement from posterior to anterior. Cement was then applied to the distal femur and the femoral component impacted. Excess cement was removed. The knee was brought into full extension and this position with axial load was maintained until the cement was completely hardened at 18 minutes. A combination R.E.C.K. (123 mg Ropivacaine, 0.25 mg Epinephrine, 0.04 mg Clonidine, and 15 mg Ketorolac) 50 ml injection was widely infiltrated about the knee. The wound was copiously irrigated with the pulse lavage and Surgiphor. Tibial tray bending machine set up operator was removed, the tibia 7mm trial was used again had excellent balancing in flexion, extension, and still about 2 mm of medial joint opening in mild flexion. The final 7mm tibial insert was inserted and clicked into place. The patella inspected and had moderate central chondromalacia, there was a medial to inferior few millimeter sized marginal bone spur that was removed with a rongeur and then the bone margin was smooth and ablated with the Bovie. The patella was examined through range of motion and showed excellent tracking without any instability or clunking over the replacement near the trochlea especially. The remainder of the patellar cartilage, trochlear cartilage, and lateral compartment cartilage were intact. The knee was tested through range of motion found to be stable with equal balancing from full extension to flexion past 90 degrees and a couple millimeters of medial joint space opening in 20-30 degrees of flexion. Appropriate hemostasis was achieved. The capsule was approximated using #1 Vicryl in a figure-of-8 interrupted fashion and then closed using Stratafix #1 PDS barbed suture in a running fashion. The superficial layers were irrigated. Subcutaneous tissue was closed using 2-0 Monocryl in a buried interrupted fashion. Skin was closed using 3-0 Monocryl in a buried subcuticular fashion. The skin incision was glued and then covered with a Mepilex Ag dressing. An Alec wrap was applied from the foot up to the thigh. The patient awoke from anesthesia without complication was transferred to the recovery room in stable condition.
[2023-04-02] MEDS: Lactated Ringers 1,000 ML 30 ML IV ×2 (07:20→10:46)
[2023-04-02] MEDS: ceFAZolin 2 GM/50 ML BAG IVPB (07:45)
--- NOTE | 2023-04-02 08:30 | W.ANESNERVE ---
Nerve Block Single Injection Procedure Date and Time Date Performed: 04/02/23 Procedure Start: 07:21 Location Where Procedure Performed Procedure Location: Day Surgery Unit Reason Performed: Postoperative Analgesia Requesting Provider: Gilbert Dsouza Timeout Performed Timeout Performed: Yes Monitoring Used ECG, Blood Pressure, SpO2, ETCO2 and See EMR for corresponding vital signs Sterility Sterility: Hand Hygiene, Surgical Cap, Surgical Mask, Sterile Gloves, Eye Protection and Chlorhexidine Sedation Given During Procedure Sedation Given (Indicate Dose Given): Versed IV Dose:: 3mg Patient Mental Status Patient Mental Status: Sedate with meaningful communication Nerve Block 1st Nerve Block: Laterality: Right Block Type: Adductor Canal Ultrasound Image Saved?: Yes Needle / Catheter Used: 100mm SonoPlex II Local Anesthetic Bolus (Indicate Dose Given): Lidocaine used for local infiltration of skin, Injected in 3-5ml increments after negative blood aspiration and Ropivacaine 0.5% Dose:: 0.5%/25cc (125mg) Additives (Indicate Dose Given): Epinephrine to make 1:200,000 (5mcg/ml) Dose:: 125mcg (1:200,000) and Decadron Dose:: 4mg Ultrasound: Sterile probe cover and gel used Nerve Stimulator: Not Used Paresthesia: None Procedure Tolerated: No Complications and Patient tolerated well Procedure Outcome: Successful Performed By: Adi Santana
[2023-04-02] MEDS: ceFAZolin 1 GM/50 ML BAG IVPB (11:42)
--- NOTE | 2023-04-02 13:34 | W.ANESPOSTOP ---
Postoperative Evaluation Date, Time and Location Date Performed: 04/02/23 Time Performed: 13:34 Patient Location: Day Surgery Unit Vital Signs Most Recent Imported Vital Signs: Most Recent Vital Signs Temp Pulse Resp BP Pulse Ox 36.3 C L 92 H 15 104/61 95 04/02/23 13:14 04/02/23 13:14 04/02/23 13:14 04/02/23 13:14 04/02/23 13:14 Pain Score Most Recent Pain Score: Most Recent Pain Score Pain Level 0 04/02/23 13:14 Assessment Mental Status: Awake (Alert & Oriented to Patient Baseline) Airway and Respiratory Function: Patent airway with normal (patient baseline) respiratory exam Cardiovascular Function: Hemodynamically Stable Hydration Status: Adequately Hydrated Nausea & Vomiting: No Nausea or Vomiting Pain: Pt. Denies Any Pain Peripheral Nerve Block: Regional nerve block not resolved at time of post operative discharge
== END 2023-04-02 15:30 | disposition home or self-care (01) ==
PROVIDERS: PCP Nurse Practitioner Family; Visit Provider Student in an Organized Health Care Education/Training Program
PROC: (CPT 27446; principal; 2023-04-02 07:30)
DX: M17.11 Unilateral primary osteoarthritis, right knee (principal); E03.9 Hypothyroidism, unspecified; Z79.899 Other long term (current) drug therapy
CPT/HCPCS: 27446; 76942; 73560; J0131; J0171; J0690; J1100; J1885; J2001; J2250; J2371; J2405

== ENCOUNTER 2023-04-14 10:09 | Outpatient (CLI) | payer BC, SELFPAY ==
--- NOTE | 2023-04-14 09:56 | DI.RAD_ITS ---
Exam(s) XR KNEE RT 2V AP,LAT EXAM: XR KNEE RT 2V AP,LAT CLINICAL HISTORY: right knee f/u. TECHNIQUE: 2D digital imaging was performed. Two images were obtained. AP and lateral views were ob tained. COMPARISON: CR XR KNEE RT 2V AP,LAT from 04/02/2023 FINDINGS: BONES: There are stable post operative changes of a partial right knee replacement present. No fract ure or dislocation. JOINTS: The orthopedic hardware is in good position. No evidence of hardware loosening. There are d egenerative changes seen in the lateral femoral tibial and patellofemoral joint characterized by oste ophytes. SOFT TISSUE: Normal. IMPRESSION: Stable postoperative changes. DATA REPOSITORY: RADIATION DOSE DELIVERED:
== END 2023-04-14 10:10 | disposition home or self-care (01) ==
LOC: DIORS 10:09
PROVIDERS: PCP Nurse Practitioner Family; Visit Provider Student in an Organized Health Care Education/Training Program
DX: Z47.1 Aftercare following joint replacement surgery (principal); Z96.652 Presence of left artificial knee joint
CPT/HCPCS: 73560

== ENCOUNTER 2023-06-23 10:16 | Outpatient (CLI) | payer BC, SELFPAY ==
--- NOTE | 2023-06-23 07:45 | DI.RAD_ITS ---
Exam(s) XR KNEE RT 2V AP,LAT EXAM: XR KNEE RT 2V AP,LAT CLINICAL HISTORY: f/u right knee. TECHNIQUE: 2D digital imaging was performed. COMPARISON: CR XR KNEE RT 2V AP,LAT from 04/14/2023 FINDINGS: Two views. There is stable position alignment of the components of the medial hemiarthroplasty. No fractures ev ident and the lateral compartment continues to exhibit normal height. However, with respect to the t ibial component of the arthroplasty, there is a small area lucency subjacent to the more central scre w component which may indicate an element of subtle loosening. Similar findings not seen related to the femoral component. There is a joint effusion noted. More so than previous. IMPRESSION: Subtle abnormal findings as described above. DATA REPOSITORY: RADIATION DOSE DELIVERED:
== END 2023-06-23 10:17 | disposition home or self-care (01) ==
LOC: DIORS 10:16
PROVIDERS: PCP Nurse Practitioner Family; Visit Provider Student in an Organized Health Care Education/Training Program
DX: M17.11 Unilateral primary osteoarthritis, right knee (principal)
CPT/HCPCS: 73560

== ENCOUNTER 2023-10-20 14:17 | Outpatient (CLI) | payer BC, SELFPAY ==
--- NOTE | 2023-10-20 08:30 | DI.RAD_ITS ---
Exam(s) XR KNEE LT 2V AP,LAT EXAM: XR KNEE LT 2V AP,LAT CLINICAL HISTORY: F/U LEFT UKA. TECHNIQUE: 2D digital imaging was performed. Two images were obtained. AP and lateral views were ob tained. COMPARISON: CR XR KNEE LT 2V AP,LAT from 03/11/2023 FINDINGS: BONES: There are stable post operative changes of a partial left knee replacement present. No fractu re or dislocation. JOINTS: The orthopedic hardware is in good position. No evidence of hardware loosening. There are d egenerative changes seen in the lateral femoral tibial and patellofemoral joint. There is a small álvaro int effusion. SOFT TISSUE: Normal. IMPRESSION: Stable total knee replacement. DATA REPOSITORY: RADIATION DOSE DELIVERED:
--- NOTE | 2023-10-20 08:45 | DI.RAD_ITS ---
Exam(s) XR KNEE RT 2V AP,LAT EXAM: XR KNEE RT 2V AP,LAT CLINICAL HISTORY: F/U RIGHT UKA. TECHNIQUE: 2D digital imaging was performed. Three views. COMPARISON: CR XR KNEE RT 2V AP,LAT from 04/14/2023 CR XR KNEE RT 2V AP,LAT from 06/23/2023 CR XR KNEE LT 2V AP,LAT from 10/20/2023 FINDINGS: BONES: No acute fracture is present. No bony destructive lesion is seen. JOINTS: The knee is normally aligned. No joint effusion is seen. No change in the alignment of the me dial femoral tibial joint space prosthesis. There is again a small amount of lucency adjacent to the tibial component the central screw which could indicate loosening. Lucency around the femoral compo nent. The lateral femoral tibial joint space is maintained. Mild periarticular spurring. SOFT TISSUE: Normal. IMPRESSION: Stable medial femoral tibial joint space prosthesis with stable lucency at the tibial component. DATA REPOSITORY: RADIATION DOSE DELIVERED:
== END 2023-10-20 14:18 | disposition home or self-care (01) ==
LOC: DIORS 14:17
PROVIDERS: PCP Nurse Practitioner Family; Visit Provider Student in an Organized Health Care Education/Training Program
DX: Z96.651 Presence of right artificial knee joint; Z96.652 Presence of left artificial knee joint; Z47.1 Aftercare following joint replacement surgery
CPT/HCPCS: 73560

== ENCOUNTER 2024-08-03 15:39 | Outpatient (CLI) | payer BC, SELFPAY ==
--- NOTE | 2024-08-03 08:15 | DI.RAD_ITS ---
Exam(s) XR KNEE LT 2V AP,LAT EXAM: XR KNEE LT 2V AP,LAT CLINICAL HISTORY: F/U LEFT UKA. TECHNIQUE: 2D digital imaging was performed. Two images were obtained. AP and lateral views were ob tained. COMPARISON: CR XR KNEE LT 2V AP,LAT from 10/20/2023 FINDINGS: BONES: There are stable post operative changes of a left unicompartmental knee arthroplasty present. No fracture or dislocation. JOINTS: The orthopedic hardware is in good position. No evidence of hardware loosening. Mild degene rative changes are seen at the patellofemoral joint. There is a small joint effusion. SOFT TISSUE: Normal. IMPRESSION: Stable unicompartmental left knee arthroplasty. DATA REPOSITORY: RADIATION DOSE DELIVERED:
--- NOTE | 2024-08-03 08:15 | DI.RAD_ITS ---
Exam(s) XR KNEE RT 2V AP,LAT EXAM: XR KNEE RT 2V AP,LAT CLINICAL HISTORY: F/U RIGHT UKA. TECHNIQUE: 2D digital imaging was performed. Two images were obtained. AP and lateral views were ob tained. COMPARISON: CR XR KNEE RT 2V AP,LAT from 10/20/2023 FINDINGS: BONES: There are stable post operative changes of a right unicompartmental knee arthroplasty present. No fracture or dislocation. JOINTS: The orthopedic hardware is in good position. No evidence of hardware loosening. There is a small joint effusion. Mild degenerative changes are seen at the patellofemoral and the lateral femor al tibial joints. SOFT TISSUE: Normal. IMPRESSION: Stable right unicompartmental knee arthroplasty. DATA REPOSITORY: RADIATION DOSE DELIVERED:
== END 2024-08-03 15:40 | disposition home or self-care (01) ==
LOC: DIORS 15:39
PROVIDERS: PCP Nurse Practitioner Family; Visit Provider Student in an Organized Health Care Education/Training Program
DX: M17.0 Bilateral primary osteoarthritis of knee (principal)
CPT/HCPCS: 73560